=== PATIENT | female | born 1965 | race Caucasian/White ===

== ENCOUNTER → 2019-12-08 18:13 | Outpatient (CLI) | payer OTHER, SELFPAY ==
--- NOTE | ~2019-12-08 | MM_ITS ---
EXAMINATION: MM screening [facility] BI w sammy HISTORY: Screening mammogram TECHNIQUE: Craniocaudal and mediolateral oblique 3-D tomosynthesis images were obtained and synthetic 2-D images were generated. CAD analysis was submitted and interpreted. COMPARISON: 06/11/2018 bilateral digital screening mammogram 03/02/2016 diagnostic right digital mammogram and limited right breast ultrasound 02/25/2016 bilateral digital screening mammogram. BREAST PARENCHYMAL COMPOSITION: FINDINGS: Stable mild fibroglandular asymmetry. There is no evidence of suspicious mass, calcificatio n, or architectural distortion to suggest malignancy in either breast. There has been no suspicious i nterval change. IMPRESSION: 1. No mammographic evidence of malignancy. 2. Recommend routine screening mammography in one year. BI-RADS Category 2: Benign finding(s). Reviewed, dictated and finalized at location A. [employer]
== END ==
PROVIDERS: PCP Internal Medicine; Visit Provider Obstetrics & Gynecology
DX: Z12.31 Encounter for screening mammogram for malignant neoplasm of breast (principal)
CPT/HCPCS: 77063; 77067

== ENCOUNTER → 2022-04-21 16:47 | Outpatient (CLI) | payer OTHER, SELFPAY ==
--- NOTE | ~2022-04-21 | MM_ITS ---
EXAMINATION: MM screening kareem BI w sammy HISTORY: Screening mammogram TECHNIQUE: Craniocaudal and mediolateral oblique 3-D tomosynthesis images were obtained and synthetic 2-D images were generated. CAD analysis was submitted and interpreted. COMPARISON: December 08, 2019, June 11, 2018 bilateral screening mammogram examinations March 02, 2016 diagnostic right mammogram and limited right breast ultrasound February 25, 2016 bilateral screening mammogram bilateral screening mammogram BREAST PARENCHYMAL COMPOSITION: There are scattered areas of fibroglandular density. FINDINGS: Stable mild fibroglandular asymmetry There is no evidence of suspicious mass, calcification , or architectural distortion to suggest malignancy in either breast. There has been no suspicious in terval change. IMPRESSION: 1. No mammographic evidence of malignancy. 2. Recommend routine screening mammography in one year. BI-RADS Category 2: Benign finding(s). Reviewed, dictated and finalized at location A.
== END ==
PROVIDERS: PCP Internal Medicine; Visit Provider Obstetrics & Gynecology
DX: Z12.31 Encounter for screening mammogram for malignant neoplasm of breast (principal)
CPT/HCPCS: 77063; 77067

== ENCOUNTER 2022-06-24 08:59 | Outpatient (CLI) | payer OTHER, SELFPAY | END 2022-06-24 09:00 | disposition home or self-care (01) | LOC: ANHLAB 09:00 | PROVIDERS: PCP Internal Medicine; Visit Provider Obstetrics & Gynecology | DX: N95.1 Menopausal and female climacteric states (principal) | CPT/HCPCS: 36415; 83001 ==